=== PATIENT | male | born 1970 | race Caucasian/White ===

== ENCOUNTER 2020-12-26 19:24 | Emergency (ER) | payer BC, SELFPAY ==
--- NOTE | ~2020-12-26 | XR_ITS ---
XR humerus LT DATE: 12/26/2020 20:11 INDICATION: Pain and swelling of left arm TECHNIQUE: AP and lateral views COMPARISON: 12/26/2020 left elbow FINDINGS: Moderate osteoarthritic arthritis at the left glenohumeral joint. Normal alignment at the a cromioclavicular joint. No fracture or dislocation, periosteal reaction or bone destruction of left humerus. Normal alignment at the elbow joint. IMPRESSION: Osteoarthritis at left glenohumeral joint No fracture or dislocation of left humerus Reviewed, dictated and finalized at location A.
--- NOTE | ~2020-12-26 | XR_ITS ---
XR elbow LT min 3V DATE: 12/26/2020 20:10 INDICATION: Pain and swelling. TECHNIQUE: 3 views COMPARISON: None FINDINGS: There is dorsal soft tissue swelling of the elbow and proximal to mid forearm. No elbow joint effusion is evident. No fracture or dislocation of the elbow or periosteal reaction or bone destruction is detected. IMPRESSION: Dorsal soft tissue swelling at the elbow and proximal to mid forearm Reviewed, dictated and finalized at location A. IMPRESSION: Dorsal soft tissue swelling at the elbow and proximal to mid forear m
[2020-12-26 19:26] VITALS: BP 148/100; PULSE 80; RESP 16; TEMP 36.3; O2SAT 98
[2020-12-26 20:06] LABS: Basophils Percent Auto 0.3 % (0.2-1.2); Eosinophils Absolute Auto 0.1 K/mm3 (0-0.3); Eosinophils Percent Auto 0.6 % (0-4.4); Hematocrit 59.1 % (42.0-52.0); Hemoglobin 19.2 g/dL (14.0-18.0); Immature Granulocyte Absolute 0.11 K/mm3 (0.00-0.031); Immature Granulocyte Percent A 0.9 % (0-0.5); Lymphocytes Absolute Auto 0.77 K/mm3 (0.9-3.2); Lymphocytes Percent Auto 6.5 % (18.3-44.2); Mean Corpuscular HGB Conc 32.5 g/dl (32-36); Mean Corpuscular Hemoglobin 28.2 pg (26-34); Mean Corpuscular Volume 86.9 fl (80-100); Mean Platelet Volume 9.8 fl (7.4-10.4); Monocytes Percent Auto 8.3 % (2.6-8.5); Neutrophils Absolute Auto 9.9 K/mm3 (1.3-6.7); Neutrophils Percent Auto 83.4 % (45.5-73.1); Platelet Count Result 251 k/mm3 (150-375); Red Cell Distribution Width 17.4 % (11.5-14.5); White Blood Count 11.9 K/mm3 (4.5-10.0)
[2020-12-26 20:14] LABS: INR 1.6; Prothrombin Time 19.5 Seconds (11.1-14.7)
[2020-12-26 20:17] LABS: Anion Gap 8 mmol/L (8-16); Blood Urea Nitrogen 22 mg/dL (9-20); Calcium 9.5 mg/dL (8.4-10.2); Carbon Dioxide 29 mmol/L (22-30); Chloride 100 mmol/L (98-107); Estimated CRCL calculation 59 ml/min; Estimated Glomerular Filt Rate 50; Glucose 119 mg/dL (75-110); Potassium 4.9 mmol/L (3.4-5.0); Sodium 137 mmol/L (137-145)
--- NOTE | 2020-12-26 21:10 | ED.UPPEXIN ---
HPI - Extremity Injury (Upper) General Chief Complaint: Extremity Injury, Upper Stated Complaint: arm pain Time Seen by Provider: 12/26/20 19:31 Source: patient Mode of arrival: ambulatory Limitations: no limitations History of Present Illness HPI narrative: 50-year-old male Complains of pain and swelling of left arm x1 day He was doing triceps extensions with a heavy barbell felt a pop by his elbow and the immediate pain and weakness Unfortunately he also takes Coumadin because of a mitral valve issue and today the arm is much more swollen and ecchymotic and painful In addition he has loss of sensation to the hyporthenar side of the hand on that side He knows of a borderline history of polycythemia, usually with hemoglobin of about 19, does use testosterone Related Data Allergies Allergy/AdvReac Type Severity Reaction Status Date / Time No Known Allergies Allergy Unverified 03/11/20 10:01 Review of Systems Musculoskeletal: Musculoskeletal: Reports myalgias, Reports arthralgias and Reports joint swelling Neurologic: Reports focal weakness, Reports numbness and Reports weakness Hematologic/Lymphatic: Hematologic/Lymphatic: Reports easy bleeding and Reports easy bruising Exam Const: General: healthy appearing and alert Orientation/consciousness: patient oriented x3 Resp: Effort & Inspection: normal respiratory effort and not labored Neuro: Other: Sensation to light touch is absent in the hand and the ulnar nerve distribution Extrem: Other: Significant swelling, ecchymosis, and tenderness involving the distal two thirds of the upper arm and the proximal one third of the forearm on the left side There is moderate pain with passive extension of the wrist and passive extension of the digits Radial artery is palpable, ulnar artery is not but is findable with Doppler Course Course Emergency Course: Based on exam she has either a cubital tunnel which would be pretty benign or he has a forearm compartment syndrome which would not be His Ortho hand eval and possibly Vivian to differentiate Discussed with Dr. Barros who recommends transfer, discussed with patient who prefers to go to [place], discussed with Dr. Delma rausch who will accept to the ER Patient prefers to transfer by private vehicle, need to proceed directly to [place] ED on [facility] was discussed, he does not want a sling because he finds it too uncomfortable to wear Vital Signs Vital signs: Vital Signs Temperature 36.3 C L 12/26/20 19:26 Pulse Rate 80 12/26/20 19:26 Respiratory Rate 16 12/26/20 19:26 Blood Pressure 148/100 H 12/26/20 19:26 Pulse Oximetry 98 12/26/20 19:26 Temperature 36.3 C L 12/26/20 19:26 Pulse Rate 80 12/26/20 19:26 Respiratory Rate 16 12/26/20 19:26 Blood Pressure 148/100 H 12/26/20 19:26 Pulse Oximetry 98 12/26/20 19:26 MDM - Extremity Injury (Upper) Lab Data Result diagrams: 12/26/20 20:00 12/26/20 20:00 Labs: Lab Results 12/26/20 12/26/20 12/26/20 Range/Units 20:00 20:00 20:00 WBC 11.9 H (4.5-10.0) K/mm3 RBC 6.80 H (4.6-6.20) M/mm3 Hgb 19.2 H (14.0-18.0) g/dL Hct 59.1 H (42.0-52.0) % MCV 86.9 (80-100) fl MCH 28.2 (26-34) pg MCHC 32.5 (32-36) g/dl RDW 17.4 H (11.5-14.5) % Plt Count 251 (150-375) k/mm3 MPV 9.8 (7.4-10.4) fl Immature Gran % (Auto) 0.9 H (0-0.5) % Neut % (Auto) 83.4 H (45.5-73.1) % Lymph % (Auto) 6.5 L (18.3-44.2) % [place] % (Auto) 8.3 (2.6-8.5) % Eos % (Auto) 0.6 (0-4.4) % Baso % (Auto) 0.3 (0.2-1.2) % Lymph # (Auto) 0.77 L (0.9-3.2) K/mm3 [place] # (Auto) 1.0 H (0.1-0.6) K/mm3 Eos # (Auto) 0.1 (0-0.3) K/mm3 Baso # (Auto) 0.0 (0.0-0.1) K/mm3 Abs Immat Gran (auto) 0.11 H (0.00-0.031) K/mm3 Absolute Neuts (auto) 9.9 H (1.3-6.7) K/mm3 Absolute Nucleated RBC 0.0 (0.0-0.012) K/mm3 Nucleated RBC % 0.0 (0.0-0.2) % PT
[2020-12-26 21:45] VITALS: BP 148/96; PULSE 84; RESP 16; TEMP 36.4; O2SAT 99
== END 2020-12-26 21:47 | disposition short-term general hospital (02) ==
PROVIDERS: Emergency Provider Emergency Medicine; PCP Family Medicine
DX: G56.22 Lesion of ulnar nerve, left upper limb (principal); T79.A12A Traumatic compartment syndrome of left upper extremity, initial encounter; D75.1 Secondary polycythemia; I34.1 Nonrheumatic mitral (valve) prolapse; Z79.01 Long term (current) use of anticoagulants; M19.012 Primary osteoarthritis, left shoulder; X50.3XXA Overexertion from repetitive movements, initial encounter; Y93.B3 Activity, free weights
CPT/HCPCS: 36415; 73060; 73080; 80048; 85025; 85610; 99283

== ENCOUNTER 2021-02-24 02:35 | Inpatient (IN) | payer BC, SELFPAY ==
[2021-02-24] VITALS (123 sets, daily range): BP systolic 49–151; BP diastolic 22–111; PULSE 47–136; RESP 12–88; TEMP 35.3–37; O2SAT 26–99; BMI 33.3
--- NOTE | 2021-02-24 | ECHO_ITS ---
Patient Info Name: Jose Rose Age: 51 years : 1970 Gender: Male Ht: 67 in Wt: 144 lbs BSA: 1.76 m2 HR: 106 bpm BP: 130 / 90 mmHg Heart Rhythm: Sinus Rhythm Exam Date: 02/24/2021 10:23 AM Exam Location: [facility] Patient Status: Inpatient Admit Date: 02/24/2021 Staff Ordering Physician: Queenie Cali MD Hand Flatwork Finisher: Larry Moulton, MIKE, RT Attending Provider: Shay Tabor MD Referring Physician: Karely MOODY; Exam Type: CA echo doppler color flow Study Info Indications I50.9 - Heart failure, unspecified Complete two-dimensional, color flow and Doppler transthoracic echocardiogram is performed. Summary 1. Complete two-dimensional, color flow and Doppler transthoracic echocardiogram is performed. 2. Normal left ventricular size with moderate concentric hypertrophy and very severe global left ventricular dysfunction. Estimated ejection fraction is 10-15%. Diastolic dysfunction grade 2 is present. No segmental wall motion abnormalities. 3. Moderate right ventricular enlargement with moderate to severe global hypokinesis. 4. Moderate left atrial enlargement. 5. Grossly normal mechanical mitral valve prosthesis. Mitral valve area 3.7 cm2. 6. Dilated IVC. 7. Normal sinus rhythm. 8. Technically difficult study. Left Ventricle Left ventricular chamber dimension is normal. Left ventricular systolic function is severely reduced, estimated at <15%. There is moderately increased left ventricular wall thickness. Left ventricular septal wall motion is normal. The left ventricular diastolic function is normal. Right Ventricle Right ventricular chamber dimension is moderately enlarged. Right ventricular systolic function is reduced. Left Atria Left atrial chamber dimension is moderately enlarged. Right Atria Right atrial chamber dimension is normal. Aortic Valve The aortic valve is trileaflet. There is no aortic valve sclerosis. There is no aortic valve stenosis. There is trace aortic valve regurgitation. Pulmonic Valve The pulmonic valve is normal. There is no pulmonic valve stenosis. There is no pulmonic regurgitation. Mitral Valve The mechanical mitral valve leaflefts are Empty. There is no stenosis of the mechanical mitral valve. There is no regurgitation of the mechanical mitral valve. Tricuspid Valve The tricuspid valve leaflets are normal. There is no significant tricuspid valve stenosis. There is trace tricuspid valve regurgitation. No pulmonary hypertension, estimated pulmonary arterial systolic pressure is Empty. Pericardium/Pleural The pericardium appears normal. There is no pericardial effusion. Inferior Vena Cava Dilated inferior vena cava with >50% collapse upon inspiration consistent with Empty right atrial pressure, Empty. Aorta The aortic root size at the sinus of Valsalva is normal. The prox ascending aorta size is normal. Left Ventricular Outflow Tract Name Value Normal LVOT 2D LVOT Diameter 2.5 cm LVOT Doppler LVOT Peak Gradient 1 mmHg LVOT Mean Gradient 1 mmHg
--- NOTE | ~2021-02-24 | CT_ITS ---
EXAMINATION: CT BRAIN W/O DATE: 02/24/2021 04:51 INDICATION: Postcardiac arrest TECHNIQUE: Computed tomography (CT) of the head was performed without intravenous contrast. The dose- length product was 681.00 mGy-cm. Automated exposure control and iterative reconstruction technique w ere employed. COMPARISON: No prior studies for comparison. FINDINGS: Normal brain parenchymal volume for age. Normal castellanos-white differentiation. No acute intrac ranial hemorrhage, infarction, mass or mass effect. There is an endotracheal tube present. No ventriculomegaly or midline shift. Midline sagittal images demonstrate a normal corpus callosum, c raniovertebral junction and sella turcica. Basilar cisterns are patent. Paranasal sinuses and mastoids are pneumatized. No depressed skull fractures. IMPRESSION: 1. No acute intracranial abnormality. Reviewed, dictated and finalized at location A.
--- NOTE | ~2021-02-24 | XR_ITS ---
XR abdomen NG/feed tube insert INDICATION: Evaluate NG tube position. TECHNIQUE: Limited KUB perform for evaluating NG tube . COMPARISON: No prior studies for comparison. FINDINGS: NG tube tip in the stomach. Visualized bowel gas pattern is unremarkable.Baeza rods o verlying the thoracic and lumbar spine are partially visualized. IMPRESSION: 1: NG tube tip in the stomach. Reviewed, dictated and finalized at location A.
--- NOTE | ~2021-02-24 | XR_ITS ---
XR chest ET placement 02/24/2021 07:55 Indication: Respiratory distress. Endotracheal tube placement. Procedure: AP view of the chest Comparison: 02/24/2021 Findings: Patchy bilateral airspace disease. Cardiomegaly. NG tube in the stomach. Distal aspect of t he endotracheal tube lies at approximately the clavicular level, although obscured by spinal rods. Impression: 1: Patchy bilateral airspace disease which may represent pneumonia or edema. 2: Cardiomegaly. Reviewed, dictated and finalized at location A. Impression: 1: Patchy bilateral airspace disease which may represent pneumonia or edema. 2: Cardiomegaly.
--- NOTE | ~2021-02-24 | XR_ITS ---
XR chest 1V portable DATE: 02/24/2021 21:45 INDICATION: Shortness of breath TECHNIQUE: Portable AP view on 02/24/2021 at 2137 hours COMPARISON: 02/24/2021 portable AP chest FINDINGS: ET tube tip in satisfactory position. NG tube in gastric fundus. No central lines. Status post sternotomy. Cardiomegaly. There is pulmonary vascular congestion and redistribution, prom inence of the minor fissure and bilateral pleural effusions as well as extensive bilateral primarily central and lower lung zone infiltrates, suggesting congestive heart failure and pulmonary edema. Rishi ateral pneumonia is not excluded. Multiple spinal rods. IMPRESSION: Cardiomegaly, congestive changes, extensive bilateral pulmonary infiltrates, small pleura l effusions, suggesting congestive heart failure and pulmonary edema, not significantly changed since 02/24/2021. Pneumonia is not excluded. Reviewed, dictated and finalized at location A. IMPRESSION: Cardiomegaly, congestive changes, extensive bilateral pulmonary inf iltrates, small pleural effusions, suggesting congestive heart failure and pulm onary edema, not significantly changed since 02/24/2021. Pneumonia is not exclud ed.
--- NOTE | ~2021-02-24 | XR_ITS ---
XR chest 1V portable 02/24/2021 04:25 Indication: Post intubation. Respiratory failure. Procedure: AP portable chest Comparison: No prior studies for comparison. Findings: There are Baeza rods overlying the spine. There is an endotracheal tube which is obscu red by the spinal rods, although lies approximately 7 cm above the denisa. There is cardiomegaly. The re is bilateral airspace disease predominantly in the upper lung zones. No significant effusion or pn eumothorax. Impression: 1: Diffuse symmetric which may represent edema or pneumonia. Reviewed, dictated and finalized at location A. Impression: 1: Diffuse symmetric which may represent edema or pneumonia.
--- NOTE | ~2021-02-24 | XR_ITS ---
EXAMINATION: XR chest 1V portable DATE: 02/24/2021 12:32 INDICATION: Hypoxia. TECHNIQUE: A single frontal view of the chest was obtained. COMPARISON: Chest single view 02/24/2021 at 7:34 AM, CT abdomen and pelvis 09/05/2018 FINDINGS: There are airspace opacities in all lung zones bilaterally with a perihilar and lower lung predominance. There are small pleural effusions. No pneumothorax. Cardiomegaly is noted. There are ch anges of mitral valve replacement. There is instrumentation of the thoracic spine. The endotracheal t ube tip is 5.0 cm above the denisa. The nasogastric tube tip is in the stomach. IMPRESSION: 1. Worsened diffuse lung disease, consistent with pulmonary edema versus pneumonia. 2. Small pleural effusions. 3. Cardiomegaly. Reviewed, dictated and finalized at location B. IMPRESSION: 1. Worsened diffuse lung disease, consistent with pulmonary edema versus pneumo maicol. 2. Small pleural effusions. 3. Cardiomegaly.
[2021-02-24] MEDS: EPINEPHrine INJ 1 MG in DEXTROSE 5% IN WATER 250 ML 75.3 MG IV CONT ×2 (03:20→05:18)
--- NOTE | 2021-02-24 03:22 | PC.NURSE ---
central line to the right femoral. epi drip @ 10 mcg/min & levophed @10 mcg /min
--- NOTE | 2021-02-24 03:40 | ED.GENADULT ---
HPI - General Adult General Chief complaint: Cardiac Arrest/CPR Stated complaint: Cardiac Arrest Time Seen by Provider: 02/24/21 02:42 Source: EMS Limitations: altered mental status and clinical condition History of Present Illness HPI narrative: Patient 51-year-old gentleman who presents the emergency department with chief complaint of cardiac arrest. Patient was found unresponsive was last seen normal around 11:00. The patient was found pulseless and and PEA cardiac arrest. ACLS was started by EMS and the patient was provided ACLS protocols about 30 minutes prior to arrival. Upon arrival to the emergency department the patient was having episodes of ventricular fibrillation that was refractory the patient received a bolus of amiodarone and also received magnesium doses in the emergency department. A repeat amiodarone bolus was given to the patient and the patient has had multiple shocks. The patient briefly had a period of return of spontaneous circulation then went back into a ventricular tachycardia cardiac arrest with periods it appeared to be torsades. Return of spontaneous circulation was obtained on the patient. The patient was intubated prehospital by EMS. Related Data Allergies Allergy/AdvReac Type Severity Reaction Status Date / Time No Known Allergies Allergy Unverified 03/11/20 10:01 Review of Systems Review of Systems: ROS unobtainable: Yes unobtainable due to endotracheal tube, unobtainable due to medical condition and unobtainable due to mental status Exam Narrative: GENERAL: Unresponsive HEAD: Normocephalic, atraumatic. EYES: Fixed and dilated. ENT: Nares clear, no rhinorrhea or epistaxis. Mucous membranes moist. NECK: Supple. CHEST: Clear to auscultation. No respiratory distress. HEART: Regular rate and rhythm. No murmur heard. Normal peripheral pulses. ABDOMEN: Soft, nontender, nondistended, normal active bowel sounds. EXTREMITIES: Normal range of motion. No edema. SKIN: Warm, dry, no rash. NEURO: Unresponsive. PSYCH: Unresponsive Course Course Emergency Course: After the patient the patient has started breathing over the ventilator and his pupils have gone from dilated to pinpoint. The patient was paralyzed and sedated with propofol. Vital Signs Vital signs: Vital Signs Temperature 35.3 C L 02/24/21 02:40 Pulse Rate 55 L 02/24/21 02:40 Respiratory Rate 18 02/24/21 02:40 Blood Pressure 110/78 02/24/21 02:40 Pulse Oximetry 96 02/24/21 02:40 Temperature 35.3 C L 02/24/21 02:40 Pulse Rate 56 L 02/24/21 05:18 Respiratory Rate 19 02/24/21 05:11 Blood Pressure 86/70 L 02/24/21 05:18 Pulse Oximetry 79 L 02/24/21 05:11 Procedures Central Line Placement Right Femoral: Central Line Date: 02/24/21 Central Line Time: 03:41 Performed Emergently - Given emergent patient condition, temporal constraints may have precluded informed consent.: Yes Time Out Performed: Yes Patient Placed on Monitor/Pulse Ox: Yes Max. Sterile Barrier Technique: Caps, large sterile sheet and hand hygiene Central Line Prep: 2% chlorhexidine scrub and sterile drapes applied Technique: sterile prep/drape Central Line Lumen Inserted: triple Post Procedure: sutured in place, good blood return, all ports aspirated, flushed, capped and sterile dressing applied Patient Tolerated Procedure: well Complications: none Medical Decision Making Vital Signs Vital Signs: Vital Signs Temperature 35.3 C L 02/24/21 02:40 Pulse Rate 55 L 02/24/21 02:40 Respiratory Rate 18 02/24/21 02:40 Blood Pressure 110/78 02/24/21 02:40 Pulse Oximetry 96 02/24/21 02:40 Temperature 35.3 C L 02/24/21 02:40 Pulse Rate 56 L 02/24/21 05:18 Respiratory Rate 19 02/24/21 05:11 Blood Pressure 86/70 L 02/24/21 05:18 Pulse Oximetry 79 L 02/24/21 05:11 Lab Data Result diagrams: 02/24/21 03:47 02/24/21 03:47
[2021-02-24] MEDS: NOREPINEPHRINE 8 MG/D5W 250 ML 8 MG/250 ML BAG 9.38 MG IV CONT (03:50)
--- NOTE | 2021-02-24 03:53 | PC.NURSE ---
amiodarone drip @ 33ml/hr
[2021-02-24 03:56] LABS: Hematocrit 58.5 % (42.0-52.0); Hemoglobin 17.6 g/dL (14.0-18.0); Mean Corpuscular HGB Conc 30.1 g/dl (32-36); Mean Corpuscular Hemoglobin 28.6 pg (26-34); Mean Corpuscular Volume 95.1 fl (80-100); Mean Platelet Volume 10.8 fl (7.4-10.4); Platelet Count Result 132 k/mm3 (150-375); Red Blood Count 6.15 M/mm3 (4.6-6.20); Red Cell Distribution Width 15.7 % (11.5-14.5); White Blood Count 19.8 K/mm3 (4.5-10.0)
[2021-02-24 04:05] LABS: INR 2.7; Prothrombin Time 28.3 Seconds (11.1-14.7)
[2021-02-24 04:05] LABS: Add Urine Microscopic? YES; Appearance Urine Cloudy (Clear); Bilirubin Urine Negative (Negative); Blood Urine 2+ (Negative); Color Urine Yellow (Yellow); Glucose Urine UA Negative (Negative); Ketones Urine Negative (Negative); Leukocyte Esterase Ur Trace LEU/UL (Negative); Nitrate Urine Negative (Negative); Protein Urine 2+ mg/dL (Negative); Specific Grav Ur 1.017 (1.001-1.035); Squamous Epithelial Cell Urine Rare /hpf (Few); Urobilinogen Urine Negative mg/dL (<2.0); WBC Urine 16-20 /hpf
[2021-02-24 04:06] LABS: Alanine Aminotransferase 347 U/L (4-50); Alkaline Phosphatase 50 U/L (38-126); Anion Gap 13 mmol/L (8-16); Aspartate Amino Transferase 449 U/L (17-59); Bilirubin,Total 1.2 mg/dL (0.2-1.3); Blood Urea Nitrogen 24 mg/dL (9-20); Calcium 9.5 mg/dL (8.4-10.2); Carbon Dioxide 23 mmol/L (22-30); Chloride 103 mmol/L (98-107); Estimated Glomerular Filt Rate 43; Glucose 184 mg/dL (65-110); Magnesium 5.5 mg/dL (1.6-2.3); Partial Thromboplastin Time 49.2 SECONDS (22.3-36.8); Potassium 4.6 mmol/L (3.4-5.0); Sodium 139 mmol/L (137-145)
[2021-02-24 04:08] LABS: Alveolar/Arterial O2 Gradient 565.2 mmHg; Base Excess ABG -13.4 mEq/l (+/-2.0); Fractional Inspired Oxygen 100 %; Oxygen Saturation ABG 96.9 % (95.0-100.0); Oxyhemoglobin 95.4 % THb (90.0-100.0); PCO2 ABG 38.2 mmHg (35.0-45.0); PO2 ABG 109.6 mmHg (80.0-100.0); Total Hemoglobin 20.1 g/dL (12.0-18.0)
[2021-02-24 04:09] LABS: Arterial Blood Gas PEEP 5 cmH2O; Arterial Blood Gas Tidal Volume 450 ml; Arterial Blood Gas Vent Mode ASSIST CONTROL; Arterial Blood Gas Ventilator rate 16 /MIN; Device VENTILATOR; Modified Allen's Test Unable to perform; Site Drawn RIGHT RADIAL; pH ABG 7.183 (7.350-7.450)
[2021-02-24 04:11] LABS: Band Neutrophils Percent 6 % (0-6); Eosinophils Absolute Manual 0.99 K/mm3 (0.02-0.5); Eosinophils Percent Manual 5 % (0-4); Lymphocytes Absolute Manual 6.33 K/mm3 (1.1-4.5); Metamyelocytes Percent 1 %; Monocytes Absolute Manual 1.78 K/mm3 (0.1-0.90); Monocytes Percent Manual 9 % (3-9); Neutrophils Absolute Manual 10.49 K/mm3 (1.3-6.7); Neutrophils Percent Manual 47 % (46-73); Total Cells Counted 100
[2021-02-24 04:12] LABS: Atypical Lymphocytes Present; Platelet Estimate Adequate (Adequate)
[2021-02-24 04:13] LABS: Lactic Acid Reflex 7.2 mmol/L (0.7-2.1)
[2021-02-24 04:19] LABS: NT Pro B Type Natriuretic Pept 68 pg/mL (5-100)
[2021-02-24] MEDS: CISATRACURIUM BESYLATE 20 MG/10 ML VIAL 10 MG IV PUSH (04:23)
[2021-02-24] MEDS: PROPOFOL IV EMULSION 100 ML 2.8 MG IV CONT (04:28)
[2021-02-24] MEDS: SODIUM BICARBONATE 8.4% 150 MEQ in DEXTROSE 5% 1,000 ML 950 ML 100 MEQ IV CONT ×2 (04:31→16:15)
[2021-02-24] MEDS: SODIUM CHLORIDE 0.9% IV 1,000 ML 999 ML IV CONT (05:43)
[2021-02-24 07:00] LABS: Reflex Lactic Acid Yes or No Add Lactic
[2021-02-24] MEDS: DOPamine 400 MG/D5W 250 ML 400 MG/250 ML BAG 20 MG IV CONT (07:00)
[2021-02-24] MEDS: EPINEPHrine INJ 4 MG in DEXTROSE 5% IN WATER 250 ML 57.15 MG IV CONT (07:30)
[2021-02-24 07:52] LABS: Hematocrit 62.6 % (42.0-52.0); Hemoglobin 19.2 g/dL (14.0-18.0); Mean Corpuscular HGB Conc 30.7 g/dl (32-36); Mean Corpuscular Hemoglobin 28.3 pg (26-34); Mean Corpuscular Volume 92.2 fl (80-100); Mean Platelet Volume 10.4 fl (7.4-10.4); Platelet Count Result 192 k/mm3 (150-375); Red Blood Count 6.79 M/mm3 (4.6-6.20); Red Cell Distribution Width 16.1 % (11.5-14.5); White Blood Count 22.7 K/mm3 (4.5-10.0)
[2021-02-24 07:58] LABS: Lactic Acid 5.4 mmol/L (0.7-2.1)
[2021-02-24] MEDS: EPINEPHrine INJ 1 MG in DEXTROSE 5% IN WATER 250 ML 225.9 MG IV CONT (07:58)
[2021-02-24] MEDS: LORazepam INJ (*CRX) 2 MG/ML VIAL IV PUSH ×2 (08:01→08:58)
[2021-02-24] MEDS: LACTATED RINGERS 1,000 ML 999 ML IV CONT (08:02)
[2021-02-24 08:08] LABS: Alanine Aminotransferase 583 U/L (4-50); Albumin Level 3.2 g/dL (3.5-5.1); Alkaline Phosphatase 58 U/L (38-126); Anion Gap 9 mmol/L (8-16); Bilirubin,Total 1.9 mg/dL (0.2-1.3); Blood Urea Nitrogen 26 mg/dL (9-20); Calcium 8.4 mg/dL (8.4-10.2); Carbon Dioxide 23 mmol/L (22-30); Chloride 103 mmol/L (98-107); Estimated CRCL calculation 57 ml/min; Estimated Glomerular Filt Rate 50; Glucose 245 mg/dL (65-110); Potassium 5.3 mmol/L (3.4-5.0); Sodium 135 mmol/L (137-145)
[2021-02-24] MEDS: levETIRAcetam 1000MG/NACL100ML 1,000 MG/100 ML BAG 400 MG IVPB (08:12)
[2021-02-24 08:15] LABS: Troponin I > 80.000 ng/mL (0.000-0.034)
--- NOTE | 2021-02-24 08:19 | ADMGEN ---
This patient, Jose Rose, was admitted to Intensive Care Unit-12. Patient/family oriented to hospital policies and general routines including ID bracelet, bed and alarms, visiting hours, pain management, procedures, bathroom and other care routines, personal items, smoking policy, room service/diet, and visiting hours. Information on how to activate the Rapid Response Team has been discussed. Patient/Family are encouraged to report perceived risks to care and to ask questions if they do not understand what they are told or what they should do.
[2021-02-24 08:22] LABS: Alveolar/Arterial O2 Gradient 603.8 mmHg; Base Excess ABG -8.8 mEq/l (+/-2.0); Fractional Inspired Oxygen 100 %; HCO3 ABG 19.4 mEq/l (22.0-26.0); Oxygen Content ABG 24.1 %vol (16.0-22.0); Oxyhemoglobin 84.8 % THb (90.0-100.0); PCO2 ABG 49.2 mmHg (35.0-45.0); Total Hemoglobin 20.3 g/dL (12.0-18.0)
[2021-02-24 08:25] LABS: pH ABG 7.213 (7.350-7.450)
[2021-02-24 08:26] LABS: Arterial Blood Gas PEEP 5 cmH2O; Arterial Blood Gas Vent Mode CMV; Arterial Blood Gas Ventilator rate 26 /MIN; Device VENTILATOR; Modified Allen's Test Unable to perform; Oxygen Saturation ABG 85.5 % (95.0-100.0); Site Drawn RIGHT RADIAL
[2021-02-24 08:27] LABS: Arterial Blood Gas Tidal Volume 400 ml
[2021-02-24 08:31] LABS: Band Neutrophils Percent 3 % (0-6); Lymphocytes Absolute Manual 1.81 K/mm3 (1.1-4.5); Monocytes Absolute Manual 0.68 K/mm3 (0.1-0.90); Monocytes Percent Manual 3 % (3-9); Neutrophils Percent Manual 86 % (46-73); Platelet Estimate Adequate (Adequate); Total Cells Counted 100
[2021-02-24 08:35] LABS: Partial Thromboplastin Time 49.7 SECONDS (22.3-36.8)
[2021-02-24 08:39] LABS: INR 3.5; Prothrombin Time 33.7 Seconds (11.1-14.7)
--- NOTE | 2021-02-24 08:40 | PM.CNCAR ---
Assessment and Plan Assessment and plan (1) Cardiac arrest: Code(s): I46.9 - Cardiac arrest, cause unspecified Status: Acute Assessment and Plan: Presented with a PEA arrest, then had polymorphic VT and V fib. Prolonged resuscitation; approx 1.5 hours. Now in shock on epi and dopamine, seizing. Prognosis appears poor. Markedly elevated trop Not clearly a STEMI by EKG. NOt a candidate for emergent cath 2nd hemodynamic instability and UGI bleeding. EKG pattern suggests possible Brugada. H/O cardiomyopathy, EF 35% in 2018. Cont supportive care. Echo Further cardiac evaluation depending on pt's neurologic course. (2) H/O mitral valve replacement with mechanical valve: Code(s): Z95.2 - Presence of prosthetic heart valve Status: Acute Assessment and Plan: On warfarin, INR therapuetic on arrival. Will need to hold warfarin for a day or two 2nd acute GI bleed. (3) CAD (coronary artery disease): Code(s): I25.10 - Atherosclerotic heart disease of [place] coronary artery without angina pectoris Status: Acute Assessment and Plan: H/O RCA and CX PCI in the past. EKG does not suggest a STEMI. History of Present Illness History of Present Illness Consult date/time: 02/24/21 08:40 Consult reason: Other (cardiac arrest) Reason For Visit: Status Post Cardiac Arrest Narrative: Date of SErvice 02/24/2021: Jose Rose is a 51 y.o. male w/ a h/o CAD s/p PCI to the RCA and CX and mechanical mitral valve replacement who is followed by Dr. House at [facility]. 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 I was asked to see Mr. Rose by the sign writer hand and ER MD Dr Roy for my advice and opinion regarding his cardiac arrest and elevated troponins, in consultation. Patient was last seen by his famly arund 11:00 p.m.. Around 1:45 a.m. he was found by his family down, unresponsive and foaming at the mouth. EMS arrived at 2:04 a.m. and found the police department had been doing CPR for approximately 2 minutes with an AED advising no shock. He was apneic and pulseless. He was in an idioventricular rhythm. He received 5 doses of epinephrine, Narcan, and was intubated in the field. Blood sugar was 80. he then went into a sinus tach but pulseless, in a PEA arrest and CPR was continued until the patient arrived to our emergency room. Here he was resuscitated for an hour in our ER. He had polymorphic V-tach and VFib and was defibrillated 13 times. He was started on amiodarone drip, epinephrine and Levophed. He is currently in the intensive care unit; his amiodarone was discontinued and his heart rhythm has been stable showing sinus tachycardia rate 102 with an occasional PVC. Remains on dopamine and and epinephrine and levophed as well as propofol. He had sz and is on meds for this. He has had profuse NGT bleeding and thus has not been started on a cooling protocol. The patient was last seen by Dr. Antelmo House on 08/27/2020. He has a history of mitral regurgitation status post mechanical mitral valve replacement in 2010, maintained on warfarin. 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 History of atrial fibrillation and polycythemia. Last echo in August 2017 showed an ejection fraction of 35%, mild LVH and LV enlargement, global longitudinal strain of-6%, a mildly dilated RV with mild RV hypokinesis, and normal appearing mechanical mitral valve, mean gradient 9 mmHg. Mild TR. Hx, ROS etc obtained fr EMR, records in Epic, the pt's nurse and Dr. Acharya, the sign writer hand. Review of Systems Review of Systems: ROS unobtainable: Yes unobtainable due to endotracheal tube, unobtainable due to medical condition and
[2021-02-24] MEDS: PANTOPRAZOLE SODIUM IV 40 MG VIAL 80 MG IV PUSH (08:58)
[2021-02-24] MEDS: PHYTONADIONE ADULT INJ 10 MG in DEXTROSE 5% IN WATER 50 ML 100 MG IVPB (08:58)
[2021-02-24] MEDS: ROCURONIUM BROMIDE 50 MG/5 ML VIAL IV PUSH ×2 (08:59→11:39)
[2021-02-24 09:20] LABS: Creatine Kinase 10507 U/L (55-170)
[2021-02-24 09:29] LABS: Aspartate Amino Transferase 1379 U/L (17-59)
[2021-02-24] MEDS: SODIUM CHLORIDE 0.9% IV 250 ML 30 ML IV CONT (10:17)
[2021-02-24] MEDS: DOPamine 400 MG/D5W 250 ML 400 MG/250 ML BAG 70.13 MG IV CONT (10:32)
[2021-02-24] MEDS: NOREPINEPHRINE 8 MG/D5W 250 ML 8 MG/250 ML BAG 56.25 MG IV CONT ×3 (10:51→20:14)
[2021-02-24 11:20] LABS: Alveolar/Arterial O2 Gradient 614.9 mmHg; Base Excess ABG -5.9 mEq/l (+/-2.0); Fractional Inspired Oxygen 100 %; HCO3 ABG 20.2 mEq/l (22.0-26.0); Oxygen Content ABG 24.5 %vol (16.0-22.0); Oxyhemoglobin 85.3 % THb (90.0-100.0); PCO2 ABG 42.1 mmHg (35.0-45.0); PO2 FiO2 Ratio Arterial Blood 0.56 %; Total Hemoglobin 20.5 g/dL (12.0-18.0)
[2021-02-24 11:22] LABS: Device VENTILATOR; Modified Allen's Test Pass; Oxygen Saturation ABG 86.2 % (95.0-100.0); Site Drawn LEFT RADIAL
[2021-02-24 11:23] LABS: Arterial Blood Gas PEEP 10 cmH2O; Arterial Blood Gas Tidal Volume 400 ml; Arterial Blood Gas Vent Mode CMV; Arterial Blood Gas Ventilator rate 26 /MIN
[2021-02-24 11:45] LABS: Troponin I > 80.000 ng/mL (0.000-0.034)
--- NOTE | 2021-02-24 11:49 | WPDCNINT ---
Assessment and Plan Assessment and plan (1) Shock: Code(s): R57.9 - Shock, unspecified Status: Acute Assessment and Plan: Status post cardiac arrest in shock, refractory to IV fluids, now on 3 pressors -will wean pressors to maintain MAP > 65 mmHg -started patient on stress dose steroids -will start prophylactic antibiotics and obtain cultures, will deescalate antibiotics if cultures are negative - started on vanc and cefepime ( initiated on 02/25/2020) (2) Cardiac arrest: Code(s): I46.9 - Cardiac arrest, cause unspecified Status: Acute Assessment and Plan: A cardiac arrest at home, prolonged course of CPR of greater than 1-1/2 hour including on field, in the ER and in the ICU. -hypothermia/TTM was not started as patient having bright red to dark red blood from NG tube, also refractory hypotension requiring 3 pressors -post cardiac arrest seizure activity has been noticed, requiring Ativan, Keppra and started on valproic acid -appreciate cardiology evaluation recommendation -will obtain echocardiogram (3) Acute respiratory failure: Code(s): J96.00 - Acute respiratory failure, unspecified whether with hypoxia or hypercapnia Status: Acute Assessment and Plan: Acute respiratory failure likely related to cardiac arrest -patient on mechanical ventilation, peep of 10, 100% FiO2 -ABGs and chest x-ray reviewed -sedated with fentanyl, Versed and Nimbex for vent synchrony - add bronchodilators as patient was wheezing (4) GI bleed: Code(s): K92.2 - Gastrointestinal hemorrhage, unspecified Status: Acute Assessment and Plan: Patient with elevated INR secondary to being on Coumadin at home -bright red to dark red blood from NG tube -started on Protonix infusion -she has been consulted (5) CAD (coronary artery disease): Code(s): I25.10 - Atherosclerotic heart disease of [place] coronary artery without angina pectoris Status: Acute Assessment and Plan: Patient with history of coronary artery disease with history of PCI to RCA and circumflex -appreciate cardiology evaluation recommendation -EKG does not show ST elevation UT -troponins are significantly elevated and Cardiology is aware of it (6) H/O mitral valve replacement with mechanical valve: Code(s): Z95.2 - Presence of prosthetic heart valve Status: Acute Assessment and Plan: History of mitral valve replacement a patient on Coumadin, therapeutic INR on arrival, will hold secondary to acute GI bleed (7) DVT prophylaxis: Code(s): Z29.9 - Encounter for prophylactic measures, unspecified Status: Acute Assessment and Plan: SCDs (8) Dietary counseling and surveillance: Code(s): Z71.3 - Dietary counseling and surveillance Status: Acute Assessment and Plan: Stress ulcer prophylaxis: Protonix infusion Hold tube feeds for today Additional Plan Discussed at length with mother and son who is a family physician, updated with patient's condition and plan of care. I did let them know regarding post cardiac arrest seizures, unable to do target temperature management/hypothermia protocol. I also discussed with them code status, S supposed to discuss among themselves and get back to me. Code status: Full code Critical care time spent: 55 minutes Condition: Guarded This dictation may have been done utilizing a voice recognition system. Attempts have been made to correct errors. However, there may be uncorrected grammatical, spelling, and recognition errors present. Due to a high probability of clinically significant, life threatening deterioration, the patient required my highest level of preparedness to intervene emergently and I personally spent this critical care time directly and personally managing the patient. This critical care time included obtaining a history; examining the patient; pulse oximetry; ordering and review of studies; priscila
[2021-02-24] MEDS: MIDAZOLAM 100MG/NS 100ML(*CRX) 100 MG/100 ML BAG IV CONT (12:05)
[2021-02-24] MEDS: CISATRACURIUM BESYLATE 200 MG in DEXTROSE 5% 80 ML 8.42 ML IV CONT ×2 (12:06→20:59)
[2021-02-24] MEDS: FENTANYL 2,500MCG/NS250ML(*CRX 2,500 MCG/250 ML BAG IV CONT (12:06)
[2021-02-24] MEDS: HYDROCORTISONE SODIUM SUCCINATE 100 MG/2 ML VIAL IV PUSH ×2 (14:04→22:20)
[2021-02-24] MEDS: CENTRAL LINE FLUSH 10 ML IV PUSH ×2 (14:08→22:21)
--- NOTE | 2021-02-24 14:11 | WPDGICN ---
Assessment and Plan Assessment and plan (1) GI bleed: Code(s): K92.2 - Gastrointestinal hemorrhage, unspecified Status: Acute Assessment and Plan: it is not surprising that there was blood in his NG tube because he is anticoagulated with a borderline supratherapeutic INR. Certainly there was some trauma with intubation and insertion of the NG tube. We will of course watch his blood counts which now are above normal. If he shows signs of persistent bleeding may need to consider endoscopy. At this point it probably is not going to be of value and would be contraindicated with the prolonged INR. correcting his INR with plasma would be beneficial in terms of bleeding, but I will leave this to the hanging flags decorator and critical care team (2) Shock: Code(s): R57.9 - Shock, unspecified Status: Acute Assessment and Plan: his pressure is being maintained with use of multiple pressors at this time (3) Cardiac arrest: Code(s): I46.9 - Cardiac arrest, cause unspecified Status: Acute Assessment and Plan: given his current status, prognosis does not seem great. I will definitely follow him with you. PPIs have been initiated GI Consult Note Consult date/time: 02/24/21 14:11 HPI: Jose Rose is a 51 year old male Who was admitted in full cardiac arrest. He rested at home and had CPR out in the field for 1-1/2 hours. The staff tells me that CPR was continued here in the intensive care unit. He does apparently have a history of coronary artery disease and has had cardiac surgery including mitral valve replacement he has found unresponsive by the family foaming at the mouth. He was in VFib and was defibrillated 13 times. He was started on epinephrine, Levophed, and amiodarone as well as dopamine also seizure activity was noted. An NG tube was placed and bright red blood was noted at 1st. Now now there is dark red blood in the NG tube. He has not passed any stools. There is a pink tinge to his urine in the catheter as well. We were not able to obtain any history as far as prior gastrointestinal issues. Was noted in the chart that he has abused anabolic steroids he was intubated remains on mechanical ventilation. He is on Coumadin at home and his INR is 3.5. Review of Systems Review of Systems: review of systems is not obtainable directly from the patient because he is unresponsive PMFSH Past Medical History Medical History CAD (coronary artery disease) History of PCI to the RCA and circumflex Surgical History Surgical History H/O mitral valve replacement with mechanical valve 2010 for mitral regurgitation Family History Family History Mother No problems noted. Social History Social History Social History: , 3 children the oldest of whom is 14. Smoking status: Never smoker Alcohol intake: never Substance use: never Spiritual care concerns: No Meds Home Medications and Allergies Home Medications Medication Instructions Recorded Confirmed Type carvedilol 12.5 mg PO BIDWM 02/24/21 02/24/21 History escitalopram oxalate 20 mg PO DAILY 02/24/21 02/24/21 History finasteride 5 mg PO DAILY 02/24/21 02/24/21 History gabapentin 300 mg PO TID 02/24/21 02/24/21 History losartan 50 mg PO DAILY 02/24/21 02/24/21 History rosuvastatin 20 mg PO DAILY 02/24/21 02/24/21 History spironolactone 12.5 mg PO DAILY 02/24/21 02/24/21 History trazodone 100 mg PO HS 02/24/21 02/24/21 History warfarin See Rx Instructions .ROUTE .COMPLEX 02/24/21 02/24/21 History Allergies Allergy/AdvReac Type Severity Reaction Status Date / Time No Known Allergies Allergy Verified 02/24/21 13:10 Vital Signs Vital Signs - 24 hr 02/24/21 02:30
[2021-02-24] MEDS: DOPamine 400 MG/D5W 250 ML 400 MG/250 ML BAG 63.11 MG IV CONT (14:19)
[2021-02-24] MEDS: VASOPRESSIN INJ 100 UNITS in DEXTROSE 5% 95 ML IV CONT (15:21)
--- NOTE | 2021-02-24 17:03 | PC.NURSE ---
Spoke with Dr. Acharya regarding patient status. Pt was tolerating decreasing of dopamine. Dopamine was placed on pause with a BP of 122/95. BP then dropped to 49/34. Unable to obtain manual BP. BP was dopplered to obtain SBP. SBP was 80 with doppler. New order to start Phytonadione at 120mg/hr and continue to try to wean off Dopamine.
--- NOTE | 2021-02-24 18:44 | PM.IMHP ---
H&P: HPI History of Present Illness Date/Time: 02/24/21 18:44 patient is currently on vent unable to provide any review of symptoms or history, history is recorded from medical records, patient is a 51-year-old male with history of coronary artery disease status post stent, mitral valve replacement, history of anabolic steroid use, patient was loss found in normal state of health at 11pm on 02/23/2021 and and around 1:45am patient was found unresponsive initially police are as well as EMS and CPR was started and ACLS protocol was called, patient received 5 around of epinephrine, Narcan, patient was intubated in the field and brought emergency depart currently now in ICU on ventilator Chief Complaint: cardiac arrest Review of Systems Review of Systems: ROS unobtainable: Yes unobtainable due to endotracheal tube PMFSH Past Medical History Medical History CAD (coronary artery disease) History of PCI to the RCA and circumflex Surgical History Surgical History H/O mitral valve replacement with mechanical valve 2010 for mitral regurgitation Family History Family History Mother No problems noted. Social History Social History Social History: , 3 children the oldest of whom is 14. Smoking status: Never smoker Alcohol intake: never Substance use: never Substance use type: other Other substance usage details: steroids Spiritual care concerns: Yes Meds Home Medications and Allergies Home Medications Medication Instructions Recorded Confirmed Type carvedilol 12.5 mg PO BIDWM 02/24/21 02/24/21 History escitalopram oxalate 20 mg PO DAILY 02/24/21 02/24/21 History finasteride 5 mg PO DAILY 02/24/21 02/24/21 History gabapentin 300 mg PO TID 02/24/21 02/24/21 History losartan 50 mg PO DAILY 02/24/21 02/24/21 History rosuvastatin 20 mg PO DAILY 02/24/21 02/24/21 History spironolactone 12.5 mg PO DAILY 02/24/21 02/24/21 History trazodone 100 mg PO HS 02/24/21 02/24/21 History warfarin See Rx Instructions .ROUTE .COMPLEX 02/24/21 02/24/21 History Allergies Allergy/AdvReac Type Severity Reaction Status Date / Time No Known Allergies Allergy Verified 02/24/21 13:10 Vital Signs Vital Signs - 24 hr 02/24/21 02:30 02/24/21 02:40 02/24/21 03:16 Temperature 95.5 F L Pulse Rate 55 L 55 L Respiratory Rate 18 58 H Blood Pressure 110/78 Pulse Oximetry 73 L 96 93 02/24/21 03:20 02/24/21 03:31 02/24/21 03:40 Temperature Pulse Rate 55 L 63 63 Respiratory Rate 18 Blood Pressure 103/71 111/94 H Pulse Oximetry 02/24/21 03:41 02/24/21 03:43 02/24/21 03:45 Temperature Pulse Rate 63 64 66 Respiratory Rate 14 12 16 Blood Pressure 120/90 118/92 H 122/99 H Pulse Oximetry 02/24/21 03:47 02/24/21 03:50 02/24/21 04:28 Temperature Pulse Rate 60 56 L 55 L Respiratory Rate 15 18 Blood Pressure 127/87 91/75 L Pulse Oximetry 02/24/21 04:50 02/24/21 04:55 02/24/21 05:00 Temperature Pulse Rate 74 58 L 57 L Respiratory Rate 19 19 Blood Pressure Pulse Oximetry 95 81 L 81 L 02/24/21 05:09 02/24/21 05:11 02/24/21 05:12 Temperature Pulse Rate 57 L 57 L 57 L Respiratory Rate 19 19 19 Blood Pressure 82/70 L 86/71 L Pulse Oximetry 77 L 79 L 80 L 02/24/21 05:15 02/24/21 05:16 02/24/21 05:18 Temperature Pulse Rate 56 L 56 L 56 L Respiratory Rate 19 19 Blood Pressure 86/70 L 86/70 L Pulse Oximetry 77 L 77 L 02/24/21 05:21 02/24/21 05:26 02/24/21 05:30 Temperature Pulse Rate 55 L 55 L 55 L Respiratory Rate 18 19 18 Blood Pressure 91/75 L 87/77 L Pulse Oximetry 02/24/21 05:44 02/24/21 05:48 02/24/21 05:49 Temperature Pulse Rate 54 L 54 L 54 L Respiratory Rate 21 H Blood Pressure 84/71 L 78/
[2021-02-24] MEDS: MINERAL OIL/WHITE PETROLATUM OINTMENT 1 APPLIC EACH EYE (20:59)
[2021-02-24] MEDS: IPRATROPIUM BR 0.02% INH SOLN 0.5 MG/2.5 ML VIAL INHALATION ×2 (21:11→23:33)
[2021-02-24] MEDS: LEVALBUTEROL NEB 1.25 MG/3 ML 0.63 MG INHALATION ×2 (21:11→23:33)
[2021-02-24 21:46] LABS: Alveolar/Arterial O2 Gradient 599.2 mmHg; Base Excess ABG -5.7 mEq/l (+/-2.0); Carboxyhemoglobin 0.3 % THb (0-2.0); Fractional Inspired Oxygen 100 %; HCO3 ABG 17.8 mEq/l (22.0-26.0); Methemoglobin ABG 0.7 %THb (0-1.5); Oxygen Saturation ABG 95.9 % (95.0-100.0); Oxyhemoglobin 94.5 % THb (90.0-100.0); PCO2 ABG 31.7 mmHg (35.0-45.0); PO2 ABG 82.1 mmHg (80.0-100.0); PO2 FiO2 Ratio Arterial Blood 0.82 %; Reduced Hemoglobin 4.5 %THb (0-5.0); Total Hemoglobin 21.9 g/dL (12.0-18.0); pH ABG 7.368 (7.350-7.450)
[2021-02-24 21:48] LABS: Arterial Blood Gas Vent Mode CMV; Arterial Blood Gas Ventilator rate 26 /MIN; Device VENTILATOR; Site Drawn RIGHT BRACHIAL
[2021-02-24 21:49] LABS: Arterial Blood Gas PEEP 12 cmH2O; Arterial Blood Gas Tidal Volume 400 ml
[2021-02-24 22:36] LABS: Glucose Point of Care 218 mg/dl (65-105)
[2021-02-25] VITALS (10 sets, daily range): BP systolic 101–134; BP diastolic 42–97; PULSE 66–110; RESP 26; TEMP 36.9–37; O2SAT 72–88
[2021-02-25] MEDS: IPRATROPIUM BR 0.02% INH SOLN 0.5 MG/2.5 ML VIAL INHALATION (00:59)
[2021-02-25] MEDS: DOPamine 400 MG/D5W 250 ML 400 MG/250 ML BAG 17.53 MG IV CONT (01:12)
[2021-02-25] MEDS: NOREPINEPHRINE 8 MG/D5W 250 ML 8 MG/250 ML BAG 56.25 MG IV CONT (01:13)
[2021-02-25] MEDS: SODIUM BICARBONATE 8.4% 150 MEQ in DEXTROSE 5% 1,000 ML 950 ML 100 MEQ IV CONT (02:27)
--- NOTE | 2021-02-25 04:44 | PDCODEBLUE ---
Code Blue Note Code Blue Note Time Arrived at Code Blue: 04:10 Initial Rhythm on Arrival: V.tach Airway Management: Pt being bagged on arrival (Intubated) Chest Compressions: In process on arrival to bedside Result of Code Blue: Pt Cardiac Rhythm Post Code: Idioventricular went to asystole Code Blue Summary: Patient with V.Fiv/V.Tach shock x 3 5 cycles of CPR epi x 9, Amiodarone 300 mg x 1 5x vasopressors went into idioventricular rhythm which turned into asystole pacer pads on CPR was re started went thru 3 more cycles of cpr with no ROSC code was stopped at 04:38 brother was on the phone and was given update all thru the process.
--- NOTE | 2021-02-25 05:38 | PC.NURSE ---
0410- This nurse was in room with the respiratory therapist trying to obtain an abg. Patient started to become hypotensive, bradycardic with a weak pulse cpr was initiated. See code blue sheet in chart. 0420- Yunior (brother of patient) was called. Yunior wished patient continued to be coded until he could speak with his mother. 2088-code was called. Time of 0
--- NOTE | 2021-02-25 07:33 | PC.NURSE ---
Body released per [facility]. Patient not a candidate for donation.
[2021-03-01 09:48] LABS: SARS-CoV-2 RNA PCR Negative
--- NOTE | 2021-03-29 08:03 | P.DN_ITS ---
Discharge Summary Date and Time Date of : 02/25/21 Time of : 04:38 Provider Pronounced By: Dr. Tabor Probable Cause of Probable Cause of : Cardiac arrest Summary Hospital Course: patient is currently on vent unable to provide any review of symptoms or history, history is recorded from medical records, patient is a 51-year-old male with history of coronary artery disease status post stent, mitral valve replacement, history of anabolic steroid use, patient was loss found in normal state of health at 11pm on 02/23/2021 and and around 1:45am patient was found unresponsive initially police are as well as EMS and CPR was started and ACLS protocol was called, patient received 5 around of epinephrine, Narcan, patient was intubated in the field and brought emergency depart currently now in ICU on ventilator Code Blue Summary: Patient with V.Fiv/V.Tach shock x 3 5 cycles of CPR epi x 9, Amiodarone 300 mg x 1 5x vasopressors went into idioventricular rhythm which turned into asystole pacer pads on CPR was re started went thru 3 more cycles of cpr with no ROSC code was stopped at 04:38 brother was on the phone and was given update all thru the process. patient at 4:38 on 02/25/2021 Additional Data Confirmation of as documented by pronouncing clinician: Pupillary Reflex, Palpable Pulses, Response to Stimuli, Heart Tones and Breath Sounds Family: contacted Name of Provider Notified: Dr. Tabor Time Provider Notified: 04:10 Was code activated?: Yes Provider Requests Autopsy: No Family Requests Autopsy: No (Family declines.) General Accountant Notified: Yes Date [facility] Notified of : 02/25/21 Time [facility] Notified of : 04:56 Advance directives: No Hospice patient?: No
== END 2021-02-25 04:38 | disposition expired | DRG 208 ==
LOC: ANHED 05:26 → ANHICU 05:42
PROVIDERS: Internal Medicine; Admitting Provider Internal Medicine; Emergency Provider Emergency Medicine; PCP Family Medicine; Visit Provider Internal Medicine
DX: J96.00 Acute respiratory failure, unspecified whether with hypoxia or hypercapnia (principal); R57.9 Shock, unspecified; K92.2 Gastrointestinal hemorrhage, unspecified; I47.2 Ventricular tachycardia; I46.9 Cardiac arrest, cause unspecified; I25.10 Atherosclerotic heart disease of native coronary artery without angina pectoris; F55.3 Abuse of steroids or hormones; I25.2 Old myocardial infarction; Z95.2 Presence of prosthetic heart valve; Z95.5 Presence of coronary angioplasty implant and graft; Z79.01 Long term (current) use of anticoagulants; Z79.899 Other long term (current) drug therapy
CPT/HCPCS: 36415; 36430; 36556; 36600; 70450; 71045; 80053; 81001; 82375; 82550; 82805; 82948; 83050; 83605; 83735; 83880; 84484; 85025; 85610; 85730; 86900; 86901; 87086; 87426; 92950; 93306; 94002; 94640; 96365; 96367; 96375; 99291; C1751; C9113; C9803; J0171; J0282; J0461; J0692; J1265; J1720; J1953; J2060; J2250; J2370; J2704; J3010; J3370; J3430; J3475; J7030; J7050; J7060; J7070; J7120; P9017; U0003; U0005